=== PATIENT | male | born 1950 | race Caucasian/White ===

== ENCOUNTER 2019-11-24 05:54 | Inpatient (IN) | payer OTHER ==
[~2019-11-24] VITALS: Ht 182.9 cm; Wt 117.5 kg
--- NOTE | ~2019-11-24 | O ---
[facility] [place] [address] OPERATIVE REPORT Name: POLLO LOZANO Room #: 150-2 ADM IN M.R.#: [id number] Admission: 11/24/19 Attend Phys: Harjeet Sheppard MD Discharge: Date of : 54 Report #: [id number] THIS REPORT FOR: cc: NICOLE - Family physician unknown FAM - Family physician unknown Harjeet Sheppard MD ~ CC: NICOLE unknown Harjeet Sheppard DATE OF SERVICE: 11/24/2019 PREOPERATIVE DIAGNOSES: 1. Morbid obesity. 2. Hypertension. 3. Hyperlipidemia. 4. Gastroesophageal reflux disease. POSTOPERATIVE DIAGNOSES: 1. Morbid obesity. 2. Hypertension. 3. Hyperlipidemia. 4. Gastroesophageal reflux disease. OPERATIVE PROCEDURE DONE: Laparoscopic vertical sleeve gastrectomy. OPERATING SURGEON: Harjeet Sheppard MD VIDEO GAME TESTER: Stefan Rendon, medical student year four. INDICATIONS FOR THE PROCEDURE: The patient is a 69-year-old male who presented with features of morbid obesity. He was noted to have a weight of 120 kilograms with a BMI of 37 with the above listed comorbidities. The patient was advised laparoscopic vertical sleeve gastrectomy and possible hiatal hernia repair. The patient showed understanding and agreed to proceed. DESCRIPTION OF PROCEDURE: After explaining to the patient in detail and informed consent was obtained, the patient was identified in the preoperative holding area. The patient was transferred to the operating room and was placed in supine position. Sequential compressive devices were placed for DVT prophylaxis. Preoperative antibiotics were given. After induction of anesthesia, the abdomen was prepped and draped in a sterile fashion. Through a left upper quadrant 1 cm incision and using Optiview technique, peritoneal cavity was entered and pneumoperitoneum was created, so thereafter under direct vision, another 5 mm trocar was placed in the left mid abdomen, another 15 mm trocar was placed in the right mid abdomen, another 5 mm trocar was placed in the right subcostal region and through a 1 cm incision in the epigastrium, a [facility] [address] [place] [address] OPERATIVE REPORT Name: POLLO LOZANO Room #: 150-2 ADM IN .R.#: [id number] Admission: 11/24/19 Attend Phys: Harjeet Sheppard MD Discharge: Date of : 54 Report #: [id number] Jozef retractor was introduced and the left lobe of the liver was retracted. Upon initial inspection, the patient did not have any features to suggest a hiatal hernia. I started to take down the gastroepiploic vessel using EnSeal. The short gastric vessels were taken down. The gastrophrenic ligament was divided and the angle of His was mobilized distally. The gastroepiploic vessels were taken down up to about 4 cm proximal to the pylorus. At this point, a 36-[place] Visigi G-tube was inserted into the stomach and stomach was suctioned out. The tube was placed along the lesser curve of the stomach. The stomach was then divided in a vertical fashion with multiple Endo-[place]F [place] stapler. Multiple green loads with deidre-strips were used to divide the stomach in a vertical fashion to create a loose sleeve around the 36-[place] bougie. An air leak test was performed by instilling air into the stomach and by irrigation of fluid along the staple line, there was no leak that was noted. Absolute hemostasis was ensured. Saline irrigation was given. The sleeve gastrectomy specimen was removed. The abdomen was then deflated. The 15 mm port site incision was closed with 0 Vicryl. The skin was closed with 4-0 Monocryl for all the incisions. Dermabond was applied. The patient was stable at the end of the procedure. The patient was awoken from anesthesia and was transferred to the recovery room in stable condition. ESTIMATED BLOOD LOSS: Approximately 10 mL. CONDITION OF THE PATIENT: Stable. FLUIDS GIVEN: Per anesthesia notes. SPECIMEN SENT: Sleeve gastrectomy specimen. COMPLICATIONS: None. ANESTHESIA: General anesthesia. By: [id number] Harjeet Sheppard MD /nt
[~2019-11-24 05:54] MED LIST: ASA81BEC PO; DURAGESIC1 EAC3 TRANSDERM; MULTI VITAMIN1 EACH PO; OPANA5 MG PO; PRAVASTATIN SOD80 MG PO; TOPROL XL100 MG PO; TRIAMTERENE/HCT1 CA1 PO; ZANAFLEX6 MG PO
[2019-11-24 07:42] VITALS: BP 115/69
[2019-11-24 11:00] VITALS: BP 127/67
[2019-11-24 11:30] VITALS: BP 116/87
--- NOTE | 2019-11-24 15:33 | NUR ---
ASSUMED CARE OF THE PT AT 1100. PT IS UP W ASSIST W WALKER. PT IS RA. PAIN MEDICATION GIVEN FOR PAIN, SEE EMAR. DERMABAND ON LAP SITES DRY AND INTACT. SCD'S IN PLACE. PT NEEDS L TOTAL HIP SX DONE SO ICE PACK IS PLACED ON L HIP FOR COMFORT. L FOREARM IV INFILTRATED, IV REMOVED. R HAND IV DRY AND INTACT. CALL LIGHT IS WITHIN REACH, BED IS IN THE LOWEST POSITION AND FALL PRECAUTIONS ARE IN PLACE. WILL CONTINUE TO MONITOR THE PT.
[2019-11-24 16:29] VITALS: BP 118/76
--- NOTE | 2019-11-24 17:20 | EKG ---
[facility] [place] [address] ELECTROCARDIOGRAM REPORT Name: POLLO LOZANO Room #: 437-P ADM IN M.R.#: [id number] Admission: 11/24/19 Attend Phys: Harjeet Sheppard MD Discharge: Date of : 54 Report #: [id number] THIS REPORT FOR: cc: FAM - Family physician unknown FAM - Family physician unknown Jr Plummer MD ~ THIS REPORT FOR: //name// [facility] Test Date: 2019-11-24 Test Time: 06:20:52 Pat Name: POLLO LOZANO Department: Room: [facility] Gender: M Architect Intern: RONNI : 1950 Requested By: Mehdi Mendoza Order Number: [id number] MD: Jr Plummer Measurements Intervals [place] Rate: 70 P: 9 AK: 171 QRS: 13 QRSD: 85 T: 18 QT: 384 QTc: 415 Interpretive Statements Sinus rhythm Consider left atrial enlargement Inferior infarct, old Baseline wander in lead(s) V2 No previous ECG available for comparison Electronically Signed On 11-24-2019 17:19:15 CDT by Jr Plummer [email or web address] <ELECTRONICALLY SIGNED> By: Jr Plummer MD 11/24/19 1719 9 9 Jr Plummer MD /EPI
[2019-11-24 19:40] VITALS: BP 108/64
--- NOTE | 2019-11-25 00:59 | NUR ---
ASSESSED AT START OF SHIFT. PT A&OX4. IV INTACT AND FLUIDS INFUISING. LAP SITES CLEAN AND DRY. PT AMBULATED X2 AROUND THE UNIT TONIGHT WITH A WALKER AND SBA. NO C/O NAUSEA. PAIN MEDS GIVENX1 THIS SHIFT. FAIRISH AT BEDSIDE FOR THE NIGHT. FALL BUNDLES IN PLACE AND ICE PACK GIVEN FOR RELIEF. WILL CONT WITH POC TILL EOS.
[2019-11-25 04:32] VITALS: BP 117/69
[2019-11-25] MEDS ORDERED: HYDROCODONE-ACE15 ML PO (08:08)
[2019-11-25 08:14] VITALS: BP 119/71
[2019-11-25 10:30] VITALS: BP 119/71
--- NOTE | 2019-11-25 11:25 | NUR ---
ASSUMED CARE OF THE PT AT 0700. PT IS STANDBY ASSIST WITH WALKER AND GAIT BELT. PT TOLERATED LIQUIDS AND BARIATRIC LIQUID SUPPLE FINE IN THE AM. LAP SITES ARE CLEAR, NO DRAINAGE AND DRY. PT D/C'D TO HOME. IV REMOVED, NO BLEEDING. BELONGINGS SENT WITH PT. RX'S GIVEN TO PT AND D/C PPWK SIGNED.
--- NOTE | 2019-11-25 15:08 | PATH ---
[facility] [address] [place] [address] PATHOLOGY RPT PROCEDURE Name: POLLO CARDENAS Room #: 437-P [facility] IN M.R.#: [id number] Admission: 11/24/19 Date of : 54 Discharge: 11/25/19 Report #: [id number] Path Case #: [id number] [facility] Accession Number: [id number] . 01 Material submitted: . stomach - PARTIAL GASTRECTOMY . 01 Clinical history: . Morbid obesity due to excess calories. . 02 Diagnosis: Stomach, partial gastrectomy: - No significant diagnostic abnormalities present, history of obesity. (IUV/db; 11/25/2019) LBQ 11/25/2019 1403 Local . 02 Electronically signed: . Samira Roy MD, Pathologist NPI- [id number] . 01 Gross description: . Received in formalin labeled "Pollo Cardenas, partial gastrectomy" is a partial gastrectomy specimen measuring 17.1 x 6.5 x 3.1 cm. The serosa is pink-red and smooth, and multiple staple lines are present at the margin, ranging from 5.2-6.0 cm in length. The staple lines are removed and the specimen is opened to reveal pink-red gastric mucosa with unremarkable folding. No polyps or masses are grossly identified. Delivery Truck Driver Heavy sections are submitted in cassettes A1-A3. ([facility]; 11/24/2019) [facility] 11/24/2019 1842 Local . 02 Pathologist provided ICD-10: E66.01 . 02 CPT . 803575 Specimen Comment: A courtesy copy of this report has been sent to [phone] Specimen Comment: Report sent to Performed at: [address], [place] [id number] MD Gonzales Rosen MD Phone: [phone] Performed at: [address] [id number] MD Samira Roy MD Phone: [phone]
== END 2019-11-25 11:24 | disposition home or self-care (01) | DRG 621 ==
LOC: 4S 05:54 → TBA 05:54 → 4S 11:21 → PRE 18:28 → ENTRNSPT 11-25 11:02 → 4S 11-25 11:24
PROVIDERS: ADMIT Surgery
PROC: 0DB64Z3 Excision of Stomach, Percutaneous Endoscopic Approach, Vertical (ICD-10-PCS; principal; 2019-11-24)
DX: E66.01 Morbid (severe) obesity due to excess calories (principal); I10 Essential (primary) hypertension; E78.5 Hyperlipidemia, unspecified; G47.30 Sleep apnea, unspecified; K21.9 Gastro-esophageal reflux disease without esophagitis; Z68.35 Body mass index [BMI] 35.0-35.9, adult; Z88.5 Allergy status to narcotic agent; Z90.49 Acquired absence of other specified parts of digestive tract; Z98.1 Arthrodesis status; Z79.82 Long term (current) use of aspirin; Z79.899 Other long term (current) drug therapy
CPT/HCPCS: 10102; 50010; 50101; 50222; 50249; 50386; 50555; 50739; 50740; 51489; 52205; 52265; 53307; 53311; 54022; 54118; 55245; 56462; 56525; 56526; 57092; 62110; 62900; 70005